=== PATIENT | female | born 1990 | race Caucasian/White ===

== ENCOUNTER 2021-02-20 02:55 | Emergency (ER) | payer BC ==
[~2021-02-20] VITALS: Ht 165.1 cm; Wt 83.0 kg
[2021-02-20 03:01] VITALS: BP 130/90
[2021-02-20] MEDS ORDERED: guaiFENesin DM 200/20 MG-10 ML 10 ML UDC PO ONE (03:20)
[2021-02-20] MEDS ORDERED: MOME0.051 NS (03:24)
[2021-02-20] MEDS ORDERED: ROB PO (03:24)
[2021-02-20 03:37] VITALS: BP 130/90
== END 2021-02-20 03:36 | disposition home or self-care (01) ==
LOC: MED 02:55
DX: R05 Cough (principal); Z20.822 Contact with and (suspected) exposure to COVID-19; J02.9 Acute pharyngitis, unspecified; J45.909 Unspecified asthma, uncomplicated; Z79.899 Other long term (current) drug therapy
CPT/HCPCS: 99283